=== PATIENT | male | born 1950 | race Caucasian/White ===

== ENCOUNTER 2018-12-12 12:45 | Emergency (ER) | payer MEDICARE ==
[~2018-12-12] VITALS: Ht 175.3 cm; Wt 81.8 kg
[2018-12-12] MEDS ORDERED: NS 1,000 ML IV SCH (13:07)
--- NOTE | 2018-12-12 13:27 | REP ---
REASON: Facial droop. There are no priors for comparison. I have been given information that there are possible priors at an outside institution in [facility]. Due to the emergent necessity of interpreting this exam due to the patient symptom this examination is being interpreted without priors for comparison if available. The ventricle and sulci are within normal limits. There are no extra-axial fluid collections. There is no shift of the midline structures. There is an area of decreased density in the deep cerebral white matter of the centrum semiovale in the right frontal parietal region. The posterior fossa is within normal limits. The imaged paranasal sinuses show soft tissue density in the sphenoid sinuses. There is no skull fracture. IMPRESSION: 1. Low density area in the right frontal parietal region as described above. Without priors for comparison I cannot state with certainty whether this represents acute, subacute or chronic change. It needs to be correlated clinically and if necessary obtain an MRI. 2. Small amount of mucus in the sphenoid sinuses. Electronically Signed by Maxx Hernandez DO 12/12/2018 01:42 P
[2018-12-12 13:37] LABS: BASO % 0.3 % (0.0-1.0); EOS # 0.4 10^3/uL (0.0-0.50); EOS % 3.3 % (0.0-3.0); HEMATOCRIT 36.8 % (42.0-52.0); HEMOGLOBIN 11.8 g/dl (13.5-17.5); LYMPH # 1.8 10^3/uL (1.5-4.5); LYMPH % 15.5 % (24.0-44.0); MEAN CORPUSCULAR HEMOGLOBIN 27.8 pg (27.0-33.0); MEAN CORPUSCULAR HGB CONC 32.1 g/dl (32.0-36.5); MEAN CORPUSCULAR VOLUME 86.8 fl (80.0-96.0); MONO # 0.6 10^3/uL (0.0-0.8); MONO % 5.2 % (0.0-5.0); NEUTROPHILS # 8.9 10^3/uL (1.8-7.7); NEUTROPHILS % 75.4 % (36.0-66.0); PLATELET COUNT, AUTOMATED 342 10^3/uL (150-450); RED BLOOD COUNT 4.24 10^6/uL (4.30-6.10); WHITE BLOOD COUNT 11.7 10^3/uL (4.0-10.0)
--- NOTE | 2018-12-12 13:56 | ECGEPIP ---
[facility] - ED Test Date: 2018-12-12 Pat Name: NAJMA GUEVARA Department: Room: - Gender: Male Statement Processor: ROBBIE : 1950 Requested By: WILLIAM KNIGHT Order Number: [id number] Reading MD: Yasemin Ruiz Measurements Intervals [place] Rate: 63 P: 56 ND: 161 QRS: 13 QRSD: 94 T: 44 QT: 411 QTc: 421 Interpretive Statements SINUS RHYTHM WITH OCCASIONAL VENTRICULAR PREMATURE COMPLEXES baseline artifact may affect interpretation No prior Electronically Signed on 12-12-2018 13:55:56 EDT by Yasemin Ruiz
[2018-12-12 14:03] LABS: ALBUMIN 3.5 GM/DL (3.2-5.2); ALT/SGPT 19 U/L (12-78); BILIRUBIN,DIRECT 0.1 MG/DL (0.0-0.2); BILIRUBIN,TOTAL 0.4 MG/DL (0.2-1.0); BLOOD UREA NITROGEN 18 MG/DL (7-18); CALCIUM LEVEL 8.3 MG/DL (8.8-10.2); CARBON DIOXIDE LEVEL 30 MEQ/L (21-32); CHLORIDE LEVEL 106 MEQ/L (98-107); CK-MB VALUE MASS 3.1 NG/ML (<3.6); CPK CREATINE PHOSPHOKINASE 60 U/L (39-308); CREATININE FOR GFR 0.91 MG/DL (0.70-1.30); GLOMERULAR FILTRATION RATE > 60.0 (>49); GLUCOSE, FASTING 117 MG/DL (70-100); MB/CK RELATIVE INDEX 5.17 (< OR =4); POTASSIUM SERUM 3.8 MEQ/L (3.5-5.1); SALICYLATE LEVEL < 1.7 MG/DL (5.0-30.0); SODIUM LEVEL 141 MEQ/L (136-145); TOTAL PROTEIN 7.6 GM/DL (6.4-8.2); TROPONIN I < 0.02 NG/ML (< 0.10)
[2018-12-12 14:11] LABS: ACETAMINOPHEN LEVEL < 2.0 UG/ML (10.0-30.0)
--- NOTE | 2018-12-12 17:18 | REPVR ---
EXAM: MR Angiogram Head Without Contrast, Arteries EXAM DATE/TIME: 12/12/2018 4:53 PM CLINICAL HISTORY: 68 years old, male; Other: Facial drop; Additional info: CVA R/O TECHNIQUE: Imaging protocol: MR angiogram head without contrast. Exam focused on the arteries. 3D rendering: MIP reconstructed images were created and reviewed. COMPARISON: CT Head without contrast 12/12/2018 12:53 PM FINDINGS: Right internal carotid artery: Unremarkable. Intracranial segment is patent with no significant stenosis. No aneurysm. Right anterior cerebral artery: Unremarkable. No occlusion or significant stenosis. No aneurysm. Right middle cerebral artery: Unremarkable. No occlusion or significant stenosis. No aneurysm. Right posterior cerebral artery: Unremarkable. No occlusion or significant stenosis. No aneurysm. Right vertebral artery: Unremarkable. No occlusion or significant stenosis. No aneurysm. Left internal carotid artery: Unremarkable. Intracranial segment is patent with no significant stenosis. No aneurysm. Left anterior cerebral artery: Unremarkable. No occlusion or significant stenosis. No aneurysm. Left middle cerebral artery: Unremarkable. No occlusion or significant stenosis. No aneurysm. Left posterior cerebral artery: Unremarkable. No occlusion or significant stenosis. No aneurysm. Left vertebral artery: Unremarkable. No occlusion or significant stenosis. No aneurysm. Basilar artery: Unremarkable. No occlusion or significant stenosis. No aneurysm. IMPRESSION: No acute findings. Electronically signed by: Kenneth Appiah On 12/12/2018 17:17:58 PM
--- NOTE | 2018-12-12 17:23 | REPVR ---
EXAM: MR Head Without Contrast EXAM DATE/TIME: 12/12/2018 4:52 PM CLINICAL HISTORY: 68 years old, male; Other: Facial drop; Additional info: CVA R/O TECHNIQUE: Imaging protocol: MR of the head without contrast. COMPARISON: CT Head without contrast 12/12/2018 12:53 PM FINDINGS: Brain: T1 bright T2 dark linear focus in the deep white matter the right frontal lobe corresponds the lesion demonstrated on prior CT without any diffusion weighted or ADC map abnormality. Finding may be the sequela of prior infarct or developmental. Multiple foci of T2 lengthening are demonstrated in the subcortical, periventricular and centrum semiovale white matter consistent with age-related small vessel gliosis. Ventricles: Normal. No ventriculomegaly. Bones/joints: Unremarkable. Soft tissues: Normal. Sinuses: Inflammatory changes demonstrated in the sphenoid and ethmoid sinuses. Small retention cyst right maxillary sinus. Mastoid air cells: Normal as visualized. No mastoid effusion. Orbits: Unremarkable. IMPRESSION: 1. Linear focus in the deep white matter of the right lower lobe corresponding to the focus demonstrated on prior CT consistent with chronic changes as described above. 2. Multiple foci of T2 lengthening are demonstrated in the subcortical, periventricular and centrum semiovale white matter consistent with age-related small vessel gliosis. Electronically signed by: Kenneth Appiah On 12/12/2018 17:23:24 PM
[2018-12-12] MEDS ORDERED: PRED20TA PO (17:36)
[2018-12-12] MEDS ORDERED: ACYC1CAP20 PO (17:36)
[2018-12-12] MEDS ORDERED: LACRILUBE (AKWA TEARS) OPHTH OINT 3.5 GM OD ONE (18:00)
[2018-12-12 18:01] VITALS: BP 126/74
[2018-12-16 14:12] LABS: Lyme Disease IgG Ab 18 kDa Ban Present (.); Lyme Disease IgG Ab 23 kDa Ban Absent (.); Lyme Disease IgG Ab 28 kDa Ban Present (.); Lyme Disease IgG Ab 30 kDa Ban Absent (.); Lyme Disease IgG Ab 39 kDa Ban Present (.); Lyme Disease IgG Ab 41 kDa Ban Present (.); Lyme Disease IgG Ab 45 kDa Ban Absent (.); Lyme Disease IgG Ab 58 kDa Ban Present (.); Lyme Disease IgG Ab 66 kDa Ban Present (.); Lyme Disease IgG Ab 93 kDa Ban Absent (.); Lyme Disease IgG West Blot Int Positive (.); Lyme Disease IgG/IgM Antibodie 0.94 ISR (0.00-0.90); Lyme Disease IgM Ab 23 kDa Ban Absent (.); Lyme Disease IgM Ab 39 kDa Ban Present (.); Lyme Disease IgM Ab 41 kDa Ban Present (.); Lyme Disease IgM Ab Quantitati 6.91 index (0.00-0.79); Lyme Disease IgM West Blot Int Positive (.)
== END 2018-12-12 18:30 | disposition home or self-care (01) ==
LOC: M ED 12:45
DX: G51.0 Bell's palsy (principal)